=== PATIENT | male | born 1970 | race Caucasian/White ===

== ENCOUNTER 2016-08-14 09:11 | Observation (INO) | payer MEDICAID ==
[2016-08-14 09:17] VITALS: BMI 30.7
[2016-08-14] MEDS ORDERED: Sodium Chloride 0.9% 1,000 ML ONE (09:53)
[2016-08-14] MEDS ORDERED: Sodium Chloride 0.9% 1,000 ML IV ONE (09:54)
--- NOTE | 2016-08-14 09:54 | C.PDOC ---
History Of Present Illness <Stephanie Arizmendi - Last Filed: 08/14/16 19:15> <Abel Barbosa - Last Filed: 08/14/16 20:13> 46 yr old male presents to the ER with complaints of multiple episodes of vomiting and diarrhea since waking up this morning. Patient also reports of burning epigastric pain from this morning. pt took a tablet of Prilosec, but believes he may have vomited that up. Patient denies fever, chest pain, SOB, cough, back pain, dysuria, weakness or numbness. pt with hx of gastritis in past , take prilosec intermittently. (Stephanie Arizmendi) History Per: Patient History/Exam Limitations: no limitations Onset/Duration Of Symptoms: Sudden Onset (since waking up this morning ) Current Symptoms Are (Timing): Still Present Location Of Pain/Discomfort: Epigastric <Stephanie Arizmendi - Last Filed: 08/14/16 19:15> <Abel Barbosa - Last Filed: 08/14/16 20:13> Time Seen by Provider: 08/14/16 09:28 Chief Complaint (Nursing): Abdominal Pain Past Medical History Reviewed: Historical Data, Nursing Documentation, Vital Signs - Medical History PMH: Anxiety (NO MED), Arthritis, HTN, Kidney Stones, Migraine, Chronic Kidney Disease, Rheumatoid Arthritis Surgical History: Endoscopy Family History: States: No Known Family Hx - Social History Hx Tobacco Use: Yes Hx Alcohol Use: No Hx Substance Use: Yes - Immunization History Hx Tetanus Toxoid Vaccination: No Hx Influenza Vaccination: No Hx Pneumococcal Vaccination: No <Stephanie Arizmendi - Last Filed: 08/14/16 19:15> Vital Signs: Last Vital Signs Temp 98.5 F 08/14/16 17:09 Pulse 67 08/14/16 18:09 Resp 20 08/14/16 18:09 BP 169/99 H 08/14/16 18:09 Pulse Ox 100 08/14/16 19:19 Review Of Systems Except As Marked, All Systems Reviewed And Found Negative. Constitutional: Negative for: Fever Cardiovascular: Negative for: Chest Pain Respiratory: Negative for: Cough, Shortness of Breath Gastrointestinal: Positive for: Vomiting, Abdominal Pain (Burning ), Diarrhea Genitourinary: Negative for: Dysuria Musculoskeletal: Negative for: Back Pain Neurological: Negative for: Weakness, Numbness <Stephanie Arizmendi - Last Filed: 08/14/16 19:15> Physical Exam - Physical Exam Appears: Non-toxic, Other (Uncomfortable) Skin: Warm, Dry, No Rash Head: Atraumatic, Normacephalic Eye(s): bilateral: Normal Inspection, PERRL, EOMI Oral Mucosa: Moist Throat: Normal, No Erythema, No Exudate Neck: Normal, Supple Chest: Symmetrical, No Tenderness Cardiovascular: Rhythm Regular, No Murmur Respiratory: Normal Breath Sounds, No Rales, No Rhonchi, No Wheezing Gastrointestinal/Abdominal: Bowel Sounds (Hypoactive ), Soft, Tenderness ( Epigastric ), No Guarding, No Rebound Back: Normal Inspection, No CVA Tenderness Extremity: Normal ROM, No Swelling Neurological/Psych: Oriented x3, Normal Speech, Normal Motor <Stephanie Arizmendi - Last Filed: 08/14/16 19:15> ED Course And Treatment - Laboratory Results Result Diagrams: 08/14/16 10:03 08/14/16 10:03 O2 Sat by Pulse Oximetry: 100 Progress Note: pt given multiple doses of medications- pepcid, morphine, toradol.after toradol, pt sts buring resolved, but still has aching pain. abdomen remains soft, with mild epigastric tenderness on exam. pt waiting for protonix iv. pt still has pain after protonix. abdomen soft, non tender, with mild epigastric tenderness; ct abdomen ordered. <Stephanie Arizmendi - Last Filed: 08/14/16 19:15> - Laboratory Results Result Diagrams: 08/14/16 10:03 08/14/16 10:03 <Abel Barbosa - Last Filed: 08/14/16 20:13> Medical Decision Making <Stephanie Arizmendi - Last Filed: 08/14/16 19:15> <Abel Barbosa - Last Filed: 08/14/16 20:13> Medical Decision Making: PLAN: * CBC * Urinalysis * Pepcid IVP * Zofran IVP * Sodium Chloride IV (Stephanie Arizmendi) pt endorsed to me pending ct. ct neg. mildly leukoctyosis, otherwise labs unremarkable. 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 - Scribe Statement The provider has reviewed the documentation as recorded by the Scribe <Stephanie Arizmendi - Last Filed: 08/14/16 19:15> <Abel Barbosa - Last Filed: 08/14/16 20:13> - Scribe Statement Dora Trujillo All medical record entries made by the Scribe were at my direction and personally dictated by me. I have reviewed the chart and agree that the record accurately reflects my personal performance of the history, physical exam, medical decision making, and the department course for this patient. I have also personally directed, reviewed, and agree with the discharge instructions and disposition. (Stephanie Arizmendi) Physician Patient Turnover Patient Signed Over To: Abel Barbosa Handoff Comments: f/u ct scan and re-eval patient. <Stephanie Arizmendi - Last Filed: 08/14/16 19:15>
[2016-08-14 10:07] LABS: BASO # 0.1 K/uL (0.0-0.2); BASO % 0.5 % (0.0-2.0); EOS # 0.1 K/uL (0.0-0.7); EOS % 0.4 % (0.0-4.0); HEMATOCRIT 47.7 % (35.0-51.0); LYMPH # 1.8 K/uL (1.0-4.3); LYMPH % 15.2 % (20.0-40.0); MEAN CELL VOLUME 86.6 fL (80.0-94.0); MEAN CORPUSCULAR HEMOGLOBIN 29.4 pg (27.0-31.0); MEAN CORPUSCULAR HGB CONC 33.9 g/dL (33.0-37.0); MEAN PLATELET VOLUME 8.6 fL (7.2-11.7); MONO # 0.4 K/uL (0.0-0.8); MONO % 3.5 % (0.0-10.0); RED CELL DISTRIBUTION WIDTH 13.4 % (11.5-14.5)
[2016-08-14 10:13] LABS: CHLORIDE 104 mmol/L (98-107)
[2016-08-14 10:14] LABS: SODIUM 143 mmol/L (132-148)
[2016-08-14 10:16] LABS: BILIRUBIN,TOTAL 0.8 mg/dL (0.2-1.3); CARBON DIOXIDE 22 mmol/L (22-30); GFR AFRICAN-AMERICAN > 60
[2016-08-14 10:17] LABS: ALB/GLOB RATIO 1.4 (1.0-2.1); ALKALINE PHOSPHATASE 56 U/L (38-126); ALT/SGPT 32 U/L (21-72); AST/SGOT 21 U/L (17-59); BLOOD UREA NITROGEN 14 mg/dL (9-20); CALCIUM 9.5 mg/dl (8.6-10.4); GLUCOSE,RANDOM 103 mg/dL (75-110); TOTAL PROTEIN 7.8 g/dL (6.3-8.3)
[2016-08-14] MEDS ORDERED: Aluminum Hydroxide/Magnesium Hydroxide Susp (30 mL) PO STA (11:35)
[2016-08-14] MEDS ORDERED: Aluminum Hydroxide/Magnesium Hydroxide Susp (30 mL) ONE (12:21)
[2016-08-14 13:29] LABS: RBC URINE 2 /hpf (0-3); URINE BACTERIA RARE (<OCC); URINE BILIRUBIN NEGATIVE (NEGATIVE); URINE BLOOD NEGATIVE (NEGATIVE); URINE COLOR Yellow (YELLOW); URINE GLUCOSE (UA) NORMAL (Normal); URINE KETONE NEGATIVE (NEGATIVE); URINE LEUKOCYTE ESTERASE NEG Leu/uL (Negative); URINE PROTEIN NEGATIVE (NEGATIVE); URINE UROBILINOGEN NORMAL mg/dL (0.2-1.0); WBC URINE 1 /hpf (0-5)
--- NOTE | 2016-08-14 13:55 | US ---
HISTORY: epigastric pain. hx kidney stones COMPARISON: None. TECHNIQUE: Sonographic evaluation of the abdomen. FINDINGS: LIVER: Measures cm. Heterogeneous echogenicity of the liver parenchyma. No mass. No intrahepatic bile duct dilatation. GALLBLADDER: Unremarkable. No gallstones. COMMON BILE DUCT: Measures mm. No stones. No dilatation. PANCREAS: Unremarkable as visualized. No mass. No ductal dilatation. RIGHT KIDNEY: Measures cm. Normal echogenicity. No calculus, mass, or hydronephrosis. LEFT KIDNEY: Measures cm. Normal echogenicity. No calculus, mass, or hydronephrosis. SPLEEN: Normal in size and contour. No mass. AORTA: No aneurysmal dilatation. IVC: Unremarkable. OTHER FINDINGS: None. IMPRESSION: Fatty liver. No definite renal calculus.
[2016-08-14] MEDS ORDERED: Iohexol 240 (50 ml) PO STA (15:30)
[2016-08-14] MEDS ORDERED: Iohexol 240 (50 ml) ONE (15:41)
[2016-08-14] MEDS ORDERED: Morphine 4 MG/ML VIAL ONE (17:01)
[2016-08-14 19:18] VITALS: O2SAT 100
[2016-08-14 20:55] VITALS: BP 159/83; PULSE 75; RESP 18; TEMP 98.4
--- NOTE | 2016-08-15 09:59 | CT ---
PROCEDURE: CT Abdomen and Pelvis 08/14/2016 with Oral contrast. HISTORY: abd pain COMPARISON: Comparison made with the CT scan abdomen pelvis dated 03/15/2016. TECHNIQUE: Contiguous axial images of the abdomen and pelvis performed in standard fashion following oral and intravenous injection of approximately 100 cc of Visipaque 320 contrast material. . Coronal and Sagittal reformats generated. Radiation dose: Total exam DLP = 888.77 mGy-cm. FINDINGS: LOWER THORAX: Unremarkable. LIVER: The liver is enlarged measuring approximately 22.3 cm in CC dimension. There is an elliptical shaped ill-defined low-attenuation posterior superior aspect right lobe liver bordering the diaphragmatic dome which measures approximately 2.2 cm x 1.5 cm of uncertain etiology. This was not appreciated on prior study possibly due to the lack of oral intravenous contrast material on the prior exam. This focus is of uncertain etiology though could represent hemangioma. In addition, there appears to be a 2nd smaller elliptical shaped focus low attenuation posterior inferior right lobe liver measuring approximately 9.6 mm with the same differential diagnosis. Other hepatic pathology not excluded. Followup interval recommended. GALLBLADDER AND BILE DUCTS: Gallbladder is physiologically distended. No evidence of intraluminal gallbladder calculi. The PANCREAS: Pancreas appears grossly unremarkable without mass collection calcification or significant ductal dilatation. SPLEEN: Spleen exhibits normal size and attenuation pattern without mass collection or calcification. ADRENALS: There are no adrenal lesions. KIDNEYS AND URETERS: Kidneys exhibit symmetric nephrograms. No evidence of nephrolithiasis or hydronephrosis. Small exophytic low-attenuation focus seen arising from the lateral aspect midpole left kidney measuring approximately 11 mm which may represent a cyst. A 2nd small 9 mm partially exophytic low-attenuation focus arising from the posterior aspect mid/lower pole left kidney may also represent small cyst. Renal ultrasound could be performed to confirm and exclude any solid components. BLADDER: The urinary bladder is incompletely distended which may account for slight thick-walled appearance. . Muscular hypertrophy may contribute however the possibility of cystitis not excluded REPRODUCTIVE: Prostate gland measures approximately 4.2 cm in transverse dimension. APPENDIX: What appears to represent the appendix best seen on axial image number [id number]. No periappendiceal inflammatory changes. BOWEL: Evaluation of the bowel is limited due to incomplete opacification. The stomach is distended with liquid contrast material and air. Rugal folds are prominent; rule out gastritis. Visualized loops of small bowel exhibit normal contour and caliber. No evidence acute mechanical small bowel obstruction. Stool and air seen throughout the colon. . The there does appear to be mild wall thickening of the sigmoid and distal descending colon likely due to incomplete distention, peristalsis and possibly some unopacified stool however mild colitis less likely though not completely excluded. Possibly mild wall thickening related to nonspecific inflammation cannot be excluded. PERITONEUM: Unremarkable. No fluid collection. No free air. LYMPH NODES: Few small nonspecific retroperitoneal lymph nodes VASCULATURE: Unremarkable. No aortic aneurysm. BONES: Mild multilevel degenerative spondylosis of the lower thoracic and lumbar spine. OTHER FINDINGS: None. IMPRESSION: Two tiny low-attenuation foci left kidney may represent cysts however renal ultrasound could confirm and exclude any solid components. The urinary bladder is incompletely distended which may account for mild reactive hypertrophy may contribute however the possibility of a cystitis not excluded. Previously noted small calculus within the mid to distal right ureter and mild right-sided hydronephrosis no longer seen and resolved respectively. Slight wall thickening of the distal descending and sigmoid colon likely due to underdistention peristalsis and unopacified stool however of mild colitis less likely though cannot be completely excluded recommended. Hepatomegaly. There are 2 low-attenuation foci within the right lobe liver of uncertain etiology. Rule out hemangioma versus other pathology. Followup interval recommended to assess stability.
--- NOTE | 2016-08-15 20:31 | CARD ---
APPROVED REPORT EKG Measurement Heart [id number] CO [id number] [id number] <Conclusion> Sinus bradycardia Otherwise normal ECG
== END 2016-08-14 20:11 | disposition home or self-care (01) ==
LOC: C.ER 09:11 → C.9OBSV 15:32
PROVIDERS: ADMIT Emergency Medicine; ATTEND Emergency Medicine
DX: R10.13 Epigastric pain (principal); R19.7 Diarrhea, unspecified; R11.10 Vomiting, unspecified; Z87.19 Personal history of other diseases of the digestive system; F17.210 Nicotine dependence, cigarettes, uncomplicated; I12.9 Hypertensive chronic kidney disease with stage 1 through stage 4 chronic kidney disease, or unspecified chronic kidney disease; N18.9 Chronic kidney disease, unspecified; Z87.442 Personal history of urinary calculi

== ENCOUNTER 2016-11-22 12:18 | Inpatient (IN) | payer MEDICAID ==
[2016-11-22 12:18] VITALS: BMI 30.7
[2016-11-22] MEDS ORDERED: Sodium Chloride 0.9% 1,000 ML ONE (13:18)
[2016-11-22] MEDS ORDERED: Sodium Chloride 0.9% 1,000 ML IV ONE (13:24)
--- NOTE | 2016-11-22 13:37 | C.PDOC ---
History Of Present Illness 46 y/o male presents to the ED with complaints of constant burning abdominal pain, nausea, vomiting, diarrhea since this morning. states patient has chronic watery stools. Also reports fever and not tolerating PO. Pt has had similar symptoms in the past seen by Dr Wheeler diagnosed with gastritis. Pt taking nexium and protonix. History of kidney stones with multiple evaluations and admission for renal colic. Pt seen in July for abdominal pain, NVD with negative CT, discharged home. Time Seen by Provider: 11/22/16 13:18 Chief Complaint (Nursing): Abdominal Pain History Per: Patient History/Exam Limitations: no limitations Onset/Duration Of Symptoms: Hrs Current Symptoms Are (Timing): Still Present Severity: Moderate Radiation Of Pain To:: None Quality Of Discomfort: "Pain" Associated Symptoms: Fever, Nausea, Vomiting, Diarrhea Exacerbating Factors: None Alleviating Factors: None Recent travel outside of the [place]: No Additional History Per: Family Past Medical History Reviewed: Historical Data, Nursing Documentation, Vital Signs Vital Signs: Last Vital Signs Temp 98.4 F 11/22/16 14:42 Pulse 62 11/22/16 14:42 Resp 20 11/22/16 14:42 BP 172/87 H 11/22/16 14:42 Pulse Ox 100 11/22/16 14:42 - Medical History PMH: Anxiety (NO MED), Arthritis, HTN, Kidney Stones, Migraine, Chronic Kidney Disease, Rheumatoid Arthritis Surgical History: Endoscopy Family History: States: Unknown Family Hx - Social History Hx Tobacco Use: Yes Hx Alcohol Use: No Hx Substance Use: Yes - Immunization History Hx Tetanus Toxoid Vaccination: No Hx Influenza Vaccination: No Hx Pneumococcal Vaccination: No Review Of Systems Except As Marked, All Systems Reviewed And Found Negative. Constitutional: Positive for: Fever Cardiovascular: Negative for: Chest Pain Respiratory: Negative for: Shortness of Breath Gastrointestinal: Positive for: Nausea, Vomiting, Abdominal Pain, Diarrhea Physical Exam - Physical Exam Appears: Non-toxic, In Acute Distress, Other (spitting white saliva/mucus in emesis bag) Skin: Warm, Diaphoretic Head: Atraumatic, Normacephalic Oral Mucosa: Moist Neck: Normal, Normal ROM, Supple Chest: Symmetrical Cardiovascular: Rhythm Regular (tachycardic), No Murmur Respiratory: Normal Breath Sounds, No Rales, No Rhonchi, No Wheezing Gastrointestinal/Abdominal: Normal Exam, Bowel Sounds (normal), Soft, No Tenderness, No Distention, No Guarding, No Rebound Back: No CVA Tenderness Extremity: Bilateral: Atraumatic Neurological/Psych: Oriented x3, Normal Speech ED Course And Treatment - Laboratory Results Result Diagrams: 11/22/16 13:45 11/22/16 13:45 Lab Interpretation: Abnormal (Elevated WBC with left shift, CMP normal) O2 Sat by Pulse Oximetry: 98 (room air) Pulse Ox Interpretation: Normal Progress Note: Plan: labs, UA, IV fluids, morphine, pepcid, reglan, zofran. 2: 30 Patient continues to c/o epigastric burning. Maalox and Donnatol ordered but patient continues to vomit and is unable to tolerate po. He is diaphoretic but abdomen remains soft. 3:20 Patient still c/o abdominal pain with nausea, not improved after any medication. Reevaluation Time: 15:17 Reassessment Condition: Unchanged - Physician Consult Information Time Consulting Physician Contacted: 15:17 Physician Contacted: Emy Burleson Outcome Of Conversation: Patient to be admitted for intractable abdominal pain with vomiting. Consult with Dr Wheeler requested. Disposition - Disposition Disposition: HOSPITALIZED Disposition Time: 15:18 Condition: STABLE - POA Present On Arrival: None - Clinical Impression Clinical Impression: Nausea, Vomiting, Abdominal pain - Scribe Statement The provider has reviewed the documentation as recorded by the Ford Moya Provider Attestation: All medical record entries made by the Ford were at my direction and personally dictated by me. I have reviewed the chart and agree that the record accurately reflects my personal performance of the history, physical exam, medical decision making, and the department course for this patient. I have also personally directed, reviewed, and agree with the discharge instructions and disposition.
[2016-11-22 13:57] LABS: BASO % 0.3 % (0.0-2.0); EOS # 0.1 K/uL (0.0-0.7); EOS % 0.4 % (0.0-4.0); HEMOGLOBIN 15.7 g/dL (12.0-18.0); LYMPH # 2.2 K/uL (1.0-4.3); LYMPH % 15.4 % (20.0-40.0); MEAN CELL VOLUME 88.2 fL (80.0-94.0); MEAN CORPUSCULAR HEMOGLOBIN 28.6 pg (27.0-31.0); MEAN CORPUSCULAR HGB CONC 32.5 g/dL (33.0-37.0); MEAN PLATELET VOLUME 8.7 fL (7.2-11.7); MONO # 0.7 K/uL (0.0-0.8); MONO % 4.9 % (0.0-10.0); NEUT # 11.3 K/uL (1.8-7.0); RBC 5.48 Mil/uL (4.40-5.90); RED CELL DISTRIBUTION WIDTH 13.1 % (11.5-14.5); WHITE BLOOD COUNT 14.3 K/uL (4.8-10.8)
[2016-11-22 14:04] LABS: ALBUMIN 4.4 g/dL (3.5-5.0)
[2016-11-22 14:07] LABS: ALB/GLOB RATIO 1.3 (1.0-2.1); ALT/SGPT 32 U/L (21-72); AST/SGOT 24 U/L (17-59); BLOOD UREA NITROGEN 14 mg/dL (9-20); CALCIUM 9.6 mg/dl (8.6-10.4); GFR AFRICAN-AMERICAN > 60; GFR NON-AFRICAN AMERICAN > 60; LIPASE 77 U/L (23-300)
[2016-11-22] MEDS ORDERED: Alum-Mag Hydrox-Simethicone Susp (30 mL) PO STA (14:24)
[2016-11-22] MEDS ORDERED: Belladonna-Phenobarbital PO STA (14:24)
[2016-11-22] MEDS ORDERED: Belladonna-Phenobarbital ONE (14:31)
[2016-11-22] MEDS ORDERED: Aluminum Hydroxide/Magnesium Hydroxide Susp (30 mL) ONE (14:32)
[2016-11-22 15:01] LABS: URINE AMORPHOUS SEDIMENT OCC /ul (<OCC); URINE BILIRUBIN NEGATIVE (NEGATIVE); URINE BLOOD NEGATIVE (NEGATIVE); URINE CLARITY Hazy (Clear); URINE COLOR Yellow (YELLOW); URINE GLUCOSE (UA) NORMAL (Normal); URINE LEUKOCYTE ESTERASE NEG Leu/uL (Negative); URINE NITRATE NEGATIVE (NEGATIVE); URINE PROTEIN NEGATIVE (NEGATIVE); URINE UROBILINOGEN NORMAL mg/dL (0.2-1.0)
[2016-11-22 17:44] VITALS: RESP 20
--- NOTE | 2016-11-22 18:58 | CP.PCM.CON ---
History of Present Illness - History of Present Illness History of Present Illness: CC: Abdominal pain HPI: 46 year old man admitted with total body aches and pains, abdominal pain, nausea, vomiting, diarrhea. All these symptoms occur intermittently over the past year prompting ER visits and admissions, and numerous diagnostic tests including CT, Sono, EGD, all of which have been nondiagnostic. Patient is restless in bed, complaining of pain and nausea. Review of Systems - Constitutional Constitutional: Anorexia, Chills, Excessive Sweating, Fatigue, Fever, Headache, Lethargy, Weight Loss, Weakness - EENT Eyes: absent: Change in Vision - Cardiovascular Cardiovascular: absent: Chest Pain, Dyspnea - Respiratory Respiratory: absent: Dyspnea - Gastrointestinal Gastrointestinal: Abdominal Pain, Diarrhea, Heartburn, Nausea - Genitourinary Genitourinary: absent: Change in Urinary Stream - Musculoskeletal Musculoskeletal: Arthralgias, Back Pain, Myalgias - Psychiatric Psychiatric: Anxiety Past Patient History - Past Medical History & Family History Past Medical History?: Yes - Past Social History Smoking Status: Current Some Days Smoker - CARDIAC Hx Hypertension: Yes - PULMONARY Hx Respiratory Disorders: No - NEUROLOGICAL Hx Migraine: Yes - HEENT Hx HEENT Problems: No - RENAL Hx Chronic Kidney Disease: Yes Hx Kidney Stones: Yes - ENDOCRINE/METABOLIC Hx Endocrine Disorders: No - HEMATOLOGICAL/ONCOLOGICAL Hx Blood Disorders: No Hx Blood Transfusions: No - INTEGUMENTARY Hx Dermatological Problems: No - MUSCULOSKELETAL/RHEUMATOLOGICAL Hx Falls: No - GASTROINTESTINAL Hx Gastrointestinal Disorders: Yes (SEE COMMENT) Hx Gastroesophageal Reflux: Yes Other/Comment: ENDOSCOPY IN 2016 - GENITOURINARY/GYNECOLOGICAL Hx Genitourinary Disorders: No - PSYCHIATRIC Hx Substance Use: Yes - SURGICAL HISTORY Hx Surgeries: Yes Other/Comment: KIDNE STONES REMOVED WITH RENAL STENT X2 - ANESTHESIA Hx Anesthesia: Yes Hx Anesthesia Reactions: No Hx Malignant Hyperthermia: No Meds Allergies/Adverse Reactions: Allergies Allergy/AdvReac Type Severity Reaction Status Date / Time ziaban Allergy SWELLING Uncoded 08/14/16 09:16 - Medications Medications: Current Medications Amlodipine Besylate (Norvasc) 10 mg PO DAILY [facility] Famotidine (Pepcid) 20 mg IVP Q12 [facility] Heparin Sodium (Porcine) (Heparin) 5,000 units SC Q12 [facility] Dextrose/Sodium Chloride (Dextrose 5%/0.45% Ns 1000 Ml) 1,000 mls @ 80 mls/hr IV .[id number] [facility] Losartan Potassium (Cozaar) 50 mg PO DAILY [facility] Metoclopramide HCl (Reglan) 10 mg IVP ACTID [facility] Pneumococcal Polyvalent Vaccine (Pneumovax 23 Vaccine) 0.5 ml IM .ONCE ONE Stop: 11/25/16 10:01 Physical Exam - Constitutional Appears: In Acute Distress - Head Exam Head Exam: ATRAUMATIC, NORMOCEPHALIC - Eye Exam Eye Exam: absent: Scleral icterus - ENT Exam ENT Exam: Normal Exam - Neck Exam Neck exam: Positive for: Normal Inspection. Negative for: Meningismus - Respiratory Exam Respiratory Exam: Clear to Auscultation Bilateral, NORMAL BREATHING PATTERN - Cardiovascular Exam Cardiovascular Exam: REGULAR RHYTHM - GI/Abdominal Exam GI & Abdominal Exam: Soft. absent: Distended, Guarding, Mass, Rebound, Rigid, Tenderness - Back Exam Back exam: NORMAL INSPECTION. absent: CVA tenderness (L), CVA tenderness (R), tenderness - Neurological Exam Neurological exam: Alert, Oriented x3 - Skin Skin Exam: Warm Results - Vital Signs Recent Vital Signs: Last Vital Signs Temp 99.1 F 11/22/16 17:43 Pulse 60 11/22/16 17:43 Resp 20 11/22/16 17:43 BP 162/95 H 11/22/16 17:43 Pulse Ox 98 11/22/16 17:43 - Labs Result Diagrams: 11/22/16 13:45 11/22/16 13:45 Assessment & Plan (1) Abdominal pain Assessment and Plan: Acute exacerbation of chronic intermittent diffuse abdominal pain, nausea, diarrhea, now with leukocytosis. Recent EGD, CT did not disclose source of recurrent symptoms. Also with back pains and arthralgias. Perhaps all part of some systemic illness. Rec: Diet as tolerated. PPI = anti-emetics. Check stool studies. head CT. Abdominal CT. See my orders for diagnostics. Status: Acute
[2016-11-22] MEDS: Dextrose 5%/0.45% NS 1,000 ML IV SCH (19:30)
[2016-11-22 21:14] LABS: GFR AFRICAN-AMERICAN > 60; GFR NON-AFRICAN AMERICAN > 60
[2016-11-22 21:15] LABS: BLOOD UREA NITROGEN 12 mg/dL (9-20); CALCIUM 9.2 mg/dl (8.6-10.4)
[2016-11-23 07:27] LABS: BASO % 0.2 % (0.0-2.0); HEMOGLOBIN 14.9 g/dL (12.0-18.0); LYMPH # 2.1 K/uL (1.0-4.3); LYMPH % 12.7 % (20.0-40.0); MEAN CORPUSCULAR HEMOGLOBIN 29.5 pg (27.0-31.0); MEAN CORPUSCULAR HGB CONC 34.3 g/dL (33.0-37.0); MEAN PLATELET VOLUME 8.7 fL (7.2-11.7); MONO # 0.9 K/uL (0.0-0.8); MONO % 5.4 % (0.0-10.0); NEUT # 13.5 K/uL (1.8-7.0); NEUT % 81.7 % (50.0-75.0); RBC 5.06 Mil/uL (4.40-5.90); RED CELL DISTRIBUTION WIDTH 13.4 % (11.5-14.5); WHITE BLOOD COUNT 16.5 K/uL (4.8-10.8)
[2016-11-23 07:28] LABS: MEAN CELL VOLUME 86.1 fL (80.0-94.0)
[2016-11-23] MEDS: Dextrose 5%/0.45% NS 1,000 ML IV SCH ×3 (07:32→09:19)
[2016-11-23 07:38] LABS: ALBUMIN 4.2 g/dL (3.5-5.0)
[2016-11-23 07:41] LABS: AMYLASE 69 U/L (30-110); GFR AFRICAN-AMERICAN > 60; GFR NON-AFRICAN AMERICAN > 60
[2016-11-23 07:42] LABS: ALB/GLOB RATIO 1.4 (1.0-2.1); ALT/SGPT 22 U/L (21-72); AST/SGOT 21 U/L (17-59); BLOOD UREA NITROGEN 13 mg/dL (9-20); CALCIUM 9.6 mg/dl (8.6-10.4); LIPASE 79 U/L (23-300)
[2016-11-23] MEDS ORDERED: Iohexol 240 (50 ml) PO ONE (09:00)
[2016-11-23] MEDS ORDERED: Iodixanol 320 MG/ML 100 ML BOTTLE IV ONE (11:47)
[2016-11-23] MEDS: HYDROmorphone 0.5 mg/0.5 ml ISec IVP PRN ×2 (12:17→18:08)
--- NOTE | 2016-11-23 12:20 | CT ---
PROCEDURE: CT HEAD WITHOUT CONTRAST. HISTORY: vomiting, headache COMPARISON: Noncontrast head CT performed 03/02/15 TECHNIQUE: Axial computed tomography images were obtained through the head/brain without intravenous contrast. Radiation dose: Total exam DLP = 861.47 mGy-cm. This CT exam was performed using one or more of the following dose reduction techniques: Automated exposure control, adjustment of the mA and/or kV according to patient size, and/or use of iterative reconstruction technique. FINDINGS: HEMORRHAGE: No intracranial hemorrhage. BRAIN: No mass effect or edema. Right basal ganglia calcification. The fraire-white matter differentiation appears intact. Please note that MRI with diffusion imaging is more sensitive in the detection of acute ischemic event. VENTRICLES: No hydrocephalus. CALVARIUM: Unremarkable. PARANASAL SINUSES: Unremarkable as visualized. No significant inflammatory changes. MASTOID AIR CELLS: Unremarkable as visualized. No inflammatory changes. OTHER FINDINGS: None. IMPRESSION: No acute intracranial pathology identified.
--- NOTE | 2016-11-23 12:26 | CP.PCM.PN ---
Subjective - Date & Time of Evaluation Date of Evaluation: 11/23/16 Time of Evaluation: 12:30 - Subjective Subjective: F/U abdom pain. and Rn ar epresent. Pt reports feeling better today- less abdom pain. Less naus/vomiting. No BM Denies CP, SOb, fever, DEE, cough, SZ, RB, melena. Reports 50 lb wt loss x 1 yearPatient wants a regular diet and wants to go home. Objective - Vital Signs/Intake and Output Vital Signs (last 24 hours): Temp Pulse Resp BP Pulse Ox 98.5 F 65 20 160/85 H 98 11/23/16 08:00 11/23/16 08:00 11/23/16 08:00 11/23/16 08:00 11/23/16 08:00 Intake and Output: 11/23/16 11/23/16 06:59 18:59 Intake Total 980 Balance 980 - Medications Medications: Current Medications Acetaminophen (Tylenol 325mg Tab) 650 mg PO Q6 PRN PRN Reason: Pain, moderate (4-7) Amlodipine Besylate (Norvasc) 10 mg PO DAILY [facility] Last Admin: 11/23/16 09:10 Dose: 10 mg Famotidine (Pepcid) 20 mg IVP Q12 [facility] Last Admin: 11/23/16 09:11 Dose: 20 mg Heparin Sodium (Porcine) (Heparin) 5,000 units SC Q12 [facility] Last Admin: 11/23/16 09:11 Dose: 5,000 units Hydromorphone HCl (Dilaudid) 0.5 mg IVP Q4H PRN PRN Reason: Pain, severe (8-10) Last Admin: 11/23/16 12:17 Dose: 0.5 mg Dextrose/Sodium Chloride (Dextrose 5%/0.45% Ns 1000 Ml) 1,000 mls @ 60 mls/hr IV .[id number] [facility] Last Admin: 11/23/16 09:19 Dose: 60 mls/hr Losartan Potassium (Cozaar) 50 mg PO DAILY [facility] Last Admin: 11/23/16 09:10 Dose: 50 mg Metoclopramide HCl (Reglan) 10 mg IVP ACTID [facility] Last Admin: 11/23/16 12:17 Dose: 10 mg Ondansetron HCl (Zofran Inj) 4 mg IVP TID PRN PRN Reason: Nausea/Vomiting Stop: 11/23/16 23:59 Last Admin: 11/23/16 00:49 Dose: 4 mg Pneumococcal Polyvalent Vaccine (Pneumovax 23 Vaccine) 0.5 ml IM .ONCE ONE Stop: 11/25/16 10:01 - Labs Labs: 11/23/16 06:35 11/23/16 06:35 - Constitutional Appears: Well - Respiratory Exam Respiratory Exam: Clear to Ausculation Bilateral - Cardiovascular Exam Cardiovascular Exam: RRR - GI/Abdominal Exam GI & Abdominal Exam: Soft, Normal Bowel Sounds. absent: Guarding, Rigid, Tenderness, Mass, Rebound - Extremities Exam Extremities Exam: absent: Pedal Edema - Neurological Exam Neurological Exam: Alert, Oriented x3 Assessment and Plan (1) Abdominal pain Assessment & Plan: Unclear etiology. [id number] gastritis, IBS Check CT Status: Acute (2) Vomiting Status: Acute (3) Diarrhea Assessment & Plan: Better. Consider IBS. COnsider colitis. Outpatient colonosocpy,. Status: Acute (4) Leucocytosis Status: Acute (5) Weight loss Status: Acute
--- NOTE | 2016-11-23 12:37 | CT ---
PROCEDURE: CT Abdomen and Pelvis with contrast HISTORY: Abdominal pain COMPARISON: CT abdomen and pelvis with contrast performed 08/14/16 TECHNIQUE: Contrast dose: 100 cc Visipaque 320 Radiation dose: Total exam DLP = 1011.62 mGy-cm. This CT exam was performed using one or more of the following dose reduction techniques: Automated exposure control, adjustment of the mA and/or kV according to patient size, and/or use of iterative reconstruction technique. FINDINGS: LOWER THORAX: No visible consolidation, pleural effusion, or pneumothorax. LIVER: Hepatomegaly. At least 3 hypodense lesions in the right hepatic lobe measuring up to 24 mm, indeterminate. GALLBLADDER AND BILE DUCTS: Unremarkable. PANCREAS: Unremarkable. SPLEEN: Unremarkable. ADRENALS: Unremarkable. KIDNEYS AND URETERS: The kidneys enhance symmetrically. No hydronephrosis or obstructing calculus identified. Several too small to characterize renal hypodensities, statistically likely cysts. VASCULATURE: Atherosclerotic calcifications. No aortic aneurysm. BOWEL: Stomach is nondistended. Lack of oral contrast limits evaluation for bowel pathology. Bowel loops appear within normal limits of caliber without evidence of obstruction. APPENDIX: No secondary signs of acute appendicitis. PERITONEUM: No significant free fluid. No definite free air. LYMPH NODES: No bulky adenopathy identified. BLADDER: Under distention of the urinary bladder limits evaluation. REPRODUCTIVE: Unremarkable. BONES: Degenerative changes. 10 mm left femur sclerotic focus, possibly bone island. OTHER FINDINGS: None. IMPRESSION: Hepatomegaly. At least 3 hypodense lesions in the right hepatic lobe measuring up to 24 mm, indeterminate. Dedicated cross-sectional imaging may be considered for further characterization if indicated. Several too small to characterize renal hypodensities, statistically likely cysts. Additional incidental findings as above.
--- NOTE | 2016-11-23 18:54 | CP.PCM.HP ---
History of Present Illness - History of Present Illness History of Present Illness: pt came to er vomiting and diarhea abd pain slightly beter now but stomack pain Present on Admission - Present on Admission Any Indicators Present on Admission: No Review of Systems - Review of Systems Systems not reviewed;Unavailable: Acuity of Condition - Constitutional Constitutional: Anorexia - EENT Eyes: As Per HPI Ears: As Per HPI Nose/Mouth/Throat: As Per HPI - Cardiovascular Cardiovascular: As Per HPI - Respiratory Respiratory: As Per HPI - Gastrointestinal Gastrointestinal: Cramping, Dyspepsia, Heartburn, Loose Stools, Nausea, Vomiting - Genitourinary Genitourinary: As Per HPI - Musculoskeletal Musculoskeletal: As Per HPI - Integumentary Integumentary: As Per HPI - Neurological Neurological: As Per HPI - Psychiatric Psychiatric: As Per HPI - Endocrine Endocrine: As Per HPI Past Patient History - Past Medical History & Family History Past Medical History?: Yes - Past Social History Smoking Status: Current Some Days Smoker - CARDIAC Hx Hypertension: Yes - PULMONARY Hx Respiratory Disorders: No - NEUROLOGICAL Hx Migraine: Yes - HEENT Hx HEENT Problems: No - RENAL Hx Chronic Kidney Disease: Yes Hx Kidney Stones: Yes - ENDOCRINE/METABOLIC Hx Endocrine Disorders: No - HEMATOLOGICAL/ONCOLOGICAL Hx Blood Disorders: No Hx Blood Transfusions: No - INTEGUMENTARY Hx Dermatological Problems: No - MUSCULOSKELETAL/RHEUMATOLOGICAL Hx Falls: No - GASTROINTESTINAL Hx Gastrointestinal Disorders: Yes (SEE COMMENT) Hx Gastroesophageal Reflux: Yes Other/Comment: ENDOSCOPY IN 2016 - GENITOURINARY/GYNECOLOGICAL Hx Genitourinary Disorders: No - PSYCHIATRIC Hx Substance Use: Yes - SURGICAL HISTORY Hx Surgeries: Yes Other/Comment: KIDNE STONES REMOVED WITH RENAL STENT X2 - ANESTHESIA Hx Anesthesia: Yes Hx Anesthesia Reactions: No Hx Malignant Hyperthermia: No Meds Allergies/Adverse Reactions: Allergies Allergy/AdvReac Type Severity Reaction Status Date / Time ziaban Allergy SWELLING Uncoded 08/14/16 09:16 Physical Exam - Constitutional Appears: Non-toxic - Head Exam Head Exam: NORMAL INSPECTION - Eye Exam Eye Exam: Normal appearance Pupil Exam: NORMAL ACCOMODATION - ENT Exam ENT Exam: Mucous Membranes Moist - Neck Exam Neck exam: Positive for: Full Rom - Respiratory Exam Respiratory Exam: Clear to Auscultation Bilateral - Cardiovascular Exam Cardiovascular Exam: REGULAR RHYTHM - GI/Abdominal Exam GI & Abdominal Exam: Normal Bowel Sounds, Tenderness - Exam Exam: NORMAL INSPECTION - Extremities Exam Extremities exam: Positive for: normal inspection - Back Exam Back exam: NORMAL INSPECTION - Neurological Exam Neurological exam: Oriented x3 - Psychiatric Exam Psychiatric exam: Normal Mood - Skin Skin Exam: Normal Color Results - Vital Signs Recent Vital Signs: Last Vital Signs Temp 98.2 F 11/23/16 16:00 Pulse 70 11/23/16 16:00 Resp 20 11/23/16 16:00 BP 136/79 11/23/16 16:00 Pulse Ox 99 11/23/16 16:00 - Labs Result Diagrams: 11/23/16 06:35 11/23/16 06:35 Labs: Laboratory Results - last 24 hr 11/22/16 11/23/16 11/23/16 20:59 06:35 06:35 WBC 16.5 H RBC 5.06 Hgb 14.9 Hct 43.6 MCV 86.1 D MCH 29.5 MCHC 34.3 RDW 13.4 Plt Count 242 MPV 8.7 Neut % (Auto) 81.7 H Lymph % (Auto) 12.7 L [place] % (Auto) 5.4 Eos % (Auto) 0.0 Baso % (Auto) 0.2 Neut # 13.5 H Lymph # 2.1 [place] # 0.9 H Eos # 0.0 Baso # 0.0 ESR 2 Sodium 137 140 Potassium 3.5 L 3.3 L Chloride 102 104 Carbon Dioxide 22 22 Anion Gap 16 17 BUN 12 13 Creatinine 0.6 L 0.6 L Est GFR ( Amer) > 60 > 60 Est GFR (Non-Af Amer) > 60 > 60 Random Glucose 111 H 114 H Calcium 9.2 9.6 Total Bilirubin 1.1 AST 21 ALT 22 Alkaline Phosphatase 64 Total Protein 7.2 Albumin 4.2 Globulin 3.0 Albumin/Globulin Ratio 1.4 Amylase 69 Lipase 79 Vitamin B12 724 Assessment & Plan - Assessment and Plan (Free Text) Assessment: ac gastro enteritis hypokaleamia leucocytosis liver lesions Plan: flagyl cont as per orders - Date & Time Date: 11/23/16 Time: 18:56
[2016-11-23] MEDS: metroNIDAZOLE IV 500 mg/100 ml 500 MG/100 ML BAG IVPB SCH (21:20)
[2016-11-24] MEDS: Dextrose 5%/0.45% NS 1,000 ML IV SCH (00:12)
[2016-11-24] MEDS: metroNIDAZOLE IV 500 mg/100 ml 500 MG/100 ML BAG IVPB SCH (05:55)
[2016-11-24] MEDS ORDERED: DiphenhydrAMINE 50 mg/ml Inj IVP STA (06:42)
[2016-11-24 07:49] LABS: HEMOGLOBIN 15.5 g/dL (12.0-18.0); MEAN CELL VOLUME 86.5 fL (80.0-94.0); MEAN CORPUSCULAR HEMOGLOBIN 29.2 pg (27.0-31.0); MEAN CORPUSCULAR HGB CONC 33.8 g/dL (33.0-37.0); MEAN PLATELET VOLUME 8.8 fL (7.2-11.7); RBC 5.31 Mil/uL (4.40-5.90); RED CELL DISTRIBUTION WIDTH 13.4 % (11.5-14.5); WHITE BLOOD COUNT 9.8 K/uL (4.8-10.8)
[2016-11-24 08:12] LABS: ALBUMIN 4.3 g/dL (3.5-5.0)
[2016-11-24 08:15] LABS: ALB/GLOB RATIO 1.3 (1.0-2.1); ALT/SGPT 29 U/L (21-72); AST/SGOT 23 U/L (17-59); BLOOD UREA NITROGEN 16 mg/dL (9-20); GFR AFRICAN-AMERICAN > 60; GFR NON-AFRICAN AMERICAN > 60
[2016-11-24 08:18] VITALS: BP 154/88; PULSE 60; TEMP 98; O2SAT 99
--- NOTE | 2016-11-24 10:23 | CP.PCM.PN ---
Subjective - Date & Time of Evaluation Date of Evaluation: 11/24/16 Time of Evaluation: 10:22 - Subjective Subjective: Alert and oriented x3, no vomiting, no distress. Objective - Vital Signs/Intake and Output Vital Signs (last 24 hours): Temp Pulse Resp BP Pulse Ox 98.0 F 60 20 154/88 H 99 11/24/16 08:17 11/24/16 08:17 11/24/16 08:17 11/24/16 08:17 11/24/16 08:17 Intake and Output: 11/24/16 11/24/16 06:59 18:59 Intake Total 850 Balance 850 - Medications Medications: Current Medications Acetaminophen (Tylenol 325mg Tab) 650 mg PO Q6 PRN PRN Reason: Pain, moderate (4-7) Last Admin: 11/23/16 16:17 Dose: 650 mg Amlodipine Besylate (Norvasc) 10 mg PO DAILY [facility] Last Admin: 11/24/16 09:35 Dose: 10 mg Famotidine (Pepcid) 20 mg IVP Q12 [facility] Last Admin: 11/24/16 09:35 Dose: 20 mg Heparin Sodium (Porcine) (Heparin) 5,000 units SC Q12 [facility] Last Admin: 11/24/16 09:35 Dose: 5,000 units Hydromorphone HCl (Dilaudid) 0.5 mg IVP Q4H PRN PRN Reason: Pain, severe (8-10) Last Admin: 11/23/16 18:08 Dose: 0.5 mg Dextrose/Sodium Chloride (Dextrose 5%/0.45% Ns 1000 Ml) 1,000 mls @ 60 mls/hr IV .[id number] [facility] Last Admin: 11/24/16 00:12 Dose: Not Given Losartan Potassium (Cozaar) 50 mg PO DAILY [facility] Last Admin: 11/24/16 09:35 Dose: 50 mg Metoclopramide HCl (Reglan) 10 mg IVP ACTID [facility] Last Admin: 11/24/16 08:15 Dose: Not Given Pneumococcal Polyvalent Vaccine (Pneumovax 23 Vaccine) 0.5 ml IM .ONCE ONE Stop: 11/25/16 10:01 - Labs Labs: 11/24/16 07:34 11/24/16 07:34 Assessment and Plan - Assessment and Plan (Free Text) Assessment: Patient is seen and examined. Denies any abdominal pain or vomiting, tolerating diet. D/W DR Burleson, discharge plan for today. Advised to follow up with PMD in 1 week.
--- NOTE | 2016-11-24 10:40 | CP.PCM.DIS ---
Provider - Provider Date of Admission: 11/22/16 15:18 Attending physician: Emy Burleson MD Primary care physician: pt admited for vomiting and diarhea hurt pain got fluids medications seen by his gi dr cano tolerating diet stable willhave endoscopy as out pt pt instructed about bland diet and to cont his home med and f/u by his [facility] acute gastroenteritis htn liver lesion to be adressed Time Spent in preparation of Discharge (in minutes): 30 Hospital Course - Lab Results Lab Results: Most Recent Lab Values WBC 9.8 K/uL (4.8-10.8) 11/24/16 07:34 RBC 5.31 Mil/uL (4.40-5.90) 11/24/16 07:34 Hgb 15.5 g/dL (12.0-18.0) 11/24/16 07:34 Hct 46.0 % (35.0-51.0) 11/24/16 07:34 MCV 86.5 fL (80.0-94.0) 11/24/16 07:34 MCH 29.2 pg (27.0-31.0) 11/24/16 07:34 MCHC 33.8 g/dL (33.0-37.0) 11/24/16 07:34 RDW 13.4 % (11.5-14.5) 11/24/16 07:34 Plt Count 250 K/uL (130-400) 11/24/16 07:34 MPV 8.8 fL (7.2-11.7) 11/24/16 07:34 Neut % (Auto) 81.7 % (50.0-75.0) H 11/23/16 06:35 Lymph % (Auto) 12.7 % (20.0-40.0) L 11/23/16 06:35 [place] % (Auto) 5.4 % (0.0-10.0) 11/23/16 06:35 Eos % (Auto) 0.0 % (0.0-4.0) 11/23/16 06:35 Baso % (Auto) 0.2 % (0.0-2.0) 11/23/16 06:35 Neut # 13.5 K/uL (1.8-7.0) H 11/23/16 06:35 Lymph # 2.1 K/uL (1.0-4.3) 11/23/16 06:35 [place] # 0.9 K/uL (0.0-0.8) H 11/23/16 06:35 Eos # 0.0 K/uL (0.0-0.7) 11/23/16 06:35 Baso # 0.0 K/uL (0.0-0.2) 11/23/16 06:35 ESR 2 mm/hr (0-15) 11/23/16 06:35 Sodium 136 mmol/L (132-148) 11/24/16 07:34 Potassium 3.6 mmol/L (3.6-5.2) 11/24/16 07:34 Chloride 100 mmol/L (98-107) 11/24/16 07:34 Carbon Dioxide 21 mmol/L (22-30) L 11/24/16 07:34 Anion Gap 19 (10-20) 11/24/16 07:34 BUN 16 mg/dL (9-20) 11/24/16 07:34 Creatinine 0.6 MG/DL (0.8-1.5) L 11/24/16 07:34 Est GFR ( Amer) > 60 11/24/16 07:34 Est GFR (Non-Af Amer) > 60 11/24/16 07:34 Random Glucose 91 mg/dL (75-110) 11/24/16 07:34 Calcium 9.0 mg/dl (8.6-10.4) 11/24/16 07:34 Total Bilirubin 1.4 mg/dL (0.2-1.3) H 11/24/16 07:34 AST 23 U/L (17-59) 11/24/16 07:34 ALT 29 U/L (21-72) 11/24/16 07:34 Alkaline Phosphatase 67 U/L (38-126) 11/24/16 07:34 C-Reactive Prot, Quant 0.2 mg/dL (<0.8) 11/23/16 06:35 Total Protein 7.6 g/dL (6.3-8.3) 11/24/16 07:34 Albumin 4.3 g/dL (3.5-5.0) 11/24/16 07:34 Globulin 3.4 gm/dL (2.2-3.9) 11/24/16 07:34 Albumin/Globulin Ratio 1.3 (1.0-2.1) 11/24/16 07:34 Amylase 69 U/L (30-110) 11/23/16 06:35 Lipase 79 U/L (23-300) 11/23/16 06:35 Vitamin B12 724 pg/mL (239-931) 11/23/16 06:35 Urine Color Yellow (YELLOW) 11/22/16 14:44 Urine Clarity Hazy (Clear) 11/22/16 14:44 Urine pH 8.0 (5.0-8.0) 11/22/16 14:44 Ur Specific [place] 1.016 (1.003-1.030) 11/22/16 14:44 Urine Protein Negative mg/dL (NEGATIVE) 11/22/16 14:44 Urine Glucose (UA) Normal mg/dL (Normal) 11/22/16 14:44 Urine Ketones Negative mg/dL (NEGATIVE) 11/22/16 14:44 Urine Blood Negative (NEGATIVE) 11/22/16 14:44 Urine Nitrate Negative (NEGATIVE) 11/22/16 14:44 Urine Bilirubin Negative (NEGATIVE) 11/22/16 14:44 Urine Urobilinogen Normal mg/dL (0.2-1.0) 11/22/16 14:44 Ur Leukocyte Esterase Neg [place]/uL (Negative) 11/22/16 14:44 Urine RBC (Auto) 2 /hpf (0-3) 11/22/16 14:44 Amorphous Sediment Occ /ul (<OCC) H 11/22/16 14:44 Discharge Exam - Head Exam Head Exam: NORMAL INSPECTION Discharge Plan - Follow Up Plan Condition: STABLE Disposition: HOME/ ROUTINE
[2016-11-25] MEDS ORDERED: Pneumococcal 23-Valent Vaccine IM ONE (10:00)
[2016-11-27 16:13] LABS: ANCA SCREEN NEGATIVE (NEGATIVE)
== END 2016-11-24 11:55 | disposition home or self-care (01) | DRG 813 ==
LOC: C.ER 12:18 → C.9E 15:18 → C.3T 16:41
PROVIDERS: ADMIT Internal Medicine; ATTEND Internal Medicine
DX: K52.9 Noninfective gastroenteritis and colitis, unspecified (principal); N18.9 Chronic kidney disease, unspecified; I12.9 Hypertensive chronic kidney disease with stage 1 through stage 4 chronic kidney disease, or unspecified chronic kidney disease; F17.210 Nicotine dependence, cigarettes, uncomplicated; K76.9 Liver disease, unspecified

== ENCOUNTER 2016-11-29 08:05 | Day surgery (SDC) | payer MEDICAID ==
[2016-11-29] MEDS ORDERED: Propofol 10 mg/ml Inj (20 ML) ONE (10:23)
[2016-11-29] MEDS ORDERED: Lidocaine Hydrochloride 5 ML INJ ONE (10:23)
[2016-11-29] MEDS ORDERED: Lactated Ringer's 500 ML IV SCH (10:30)
[2016-11-29] MEDS ORDERED: Lactated Ringer's 500 ML IV ONE ×3 (10:32)
--- NOTE | 2016-11-29 10:37 | CP.SDSHP ---
Same Day Surgery H & P - History Proposed Procedure: Colonoscopy Pre-Op Diagnosis: gastrointestinal bleed - Previous Medical/Surgical History Neuro: Backaches Comments: Nephrolithiasis, hyperlipidemia Previous Surgical History: urethral stent - Allergies Allergies: Allergies metronidazole [From Flagyl] Adverse Reaction (Verified 11/29/16 09:55) DYSPHAGIA, SWELLING OF THROAT ziaban Allergy (Uncoded 11/29/16 09:55) SWELLING - Current Medications Current Medications: reviewed, per reconciliation - Physical Exam General Appearance: wdwn nad Vital Signs: Vital Signs 11/29/16 09:56 Temperature 99.3 F Pulse Rate 62 Respiratory 19 Rate Blood Pressure 119/84 O2 Sat by Pulse 98 Oximetry Mental Status: Alert & Oriented x3 Heart: WNL Lungs: WNL GI: WNL - {Optional Preform as Required} Abdomen: WNL - Impression Impression: gastrointestinal bleed Pt. Evaluated Today:Candidate for Anesthesia & Procedure: Yes - Date & Time Date: 11/29/16 Time: 10:36 Short Stay Discharge - Short Stay Discharge Admitting Diagnosis/Reason for Visit: SCREENING Disposition: HOME/ ROUTINE
[2016-11-29 11:26] VITALS: TEMP 98
[2016-11-29 12:30] VITALS: BP 117/78; PULSE 50; RESP 12; O2SAT 100
== END 2016-11-29 12:10 | disposition home or self-care (01) ==
LOC: C.ENDO 08:05
PROVIDERS: ATTEND Internal Medicine Gastroenterology
DX: K63.5 Polyp of colon (principal)
CPT/HCPCS: 45388; 88305; J2704; J7120